=== PATIENT | male | born 1945 | race Caucasian/White ===

== ENCOUNTER 2019-07-14 13:56 | Emergency (ER) | payer MEDICARE, OTHER ==
[~2019-07-14] VITALS: Ht 188 cm; Wt 90.7 kg
[~2019-07-14 13:56] MED LIST: ACET325; CHLO25B PO; HIGH BP MED; IBUP400; LISI20 PO; Lisinopril2.5 MG; METO25 PO; Methimazole5 MG PO; Omeprazole20 M1; Prinivil10 MG PO
[2019-07-14] MEDS ORDERED: ZESTRIL40 MG PO (14:32)
[2019-07-14] MEDS ORDERED: Lopressor 25 mg25 MG PO (14:33)
[2019-07-14] MEDS ORDERED: OMEPRAZOLE20 MG PO (14:34)
[2019-07-14] MEDS ORDERED: METHI10 PO (14:34)
[2019-07-14] MEDS ORDERED: PRAV20 PO (14:35)
[2019-07-14] MEDS ORDERED: TAMS.4ER PO (14:35)
[2019-07-14] MEDS ORDERED: TOCO1000 PO (14:35)
[2019-07-14] MEDS ORDERED: Vitamin D2000 UNIT PO (14:35)
[2019-07-14] MEDS ORDERED: CYAN1000I IM (14:36)
[2019-07-14] MEDS ORDERED: Aspirin EC81 MG PO (14:36)
[2019-07-14 15:05] LABS: BASOPHILS ABSOLUTE AUTO 0.03 K/mm3 (0.00-0.23); BASOPHILS PERCENT AUTO 1 % (0-2); EOSINOPHILS ABSOLUTE AUTO 0.11 K/mm3 (0.00-0.68); EOSINOPHILS PERCENT AUTO 2 % (0-6); Hematocrit 41.9 % (37.0-53.0); Hemoglobin 13.5 g/dL (13.5-17.5); IMMATURE GRAN ABSOLUTE AUTO 0.01 K/mm3 (0.00-0.10); IMMATURE GRAN PERCENT AUTO 0 % (0-1); LYMPHOCYTES ABSOLUTE AUTO 1.28 K/mm3 (0.84-5.20); LYMPHOCYTES PERCENT AUTO 25 % (21-46); MONOCYTES ABSOLUTE AUTO 0.52 K/mm3 (0.16-1.47); MONOCYTES PERCENT AUTO 10 % (4-13); Mean Corpuscular HGB 31.2 pg (26.0-34.0); Mean Corpuscular HGB Conc 32.2 g/dL (31.5-36.5); Mean Corpuscular Volume 97 fL (80-100); Mean Platelet Volume 9.3 fL (9.1-12.4); NEUTROPHILS ABSOLUTE AUTO 3.22 K/mm3 (1.96-9.15); NEUTROPHILS PERCENT AUTO 62 % (41-73); Platelet Count 233 K/mm3 (150-400); RDW Coefficient Variation 13.7 % (11.7-14.2); RDW Standard Deviation 49.3 fL (35.1-46.3); Red Blood Cell Count 4.33 M/mm3 (4.30-5.90); White Blood Cell Count 5.17 K/mm3 (4.00-11.30)
[2019-07-14 15:22] LABS: Free Thyroxine 0.86 ng/dL (0.70-1.60); Magnesium, Blood 2.2 mg/dL (1.6-2.4); Troponin I <0.015 ng/mL (0.000-0.040)
[2019-07-14 15:26] LABS: Alanine Aminotransfer (ALT/SGP 30 U/L (12-78); Albumin, Blood 3.9 g/dL (3.4-5.0); Albumin/Globulin Ratio 1.1 (0.8-1.8); Alk Phos 65 U/L (50-136); Anion Gap 7 mmol/L (6-16); Aspartate Aminotrans (AST/SGOT 19 U/L (12-37); Bilirubin, Total 0.5 mg/dL (0.1-1.0); Blood Urea Nitrogen 13 mg/dL (8-24); Bun/Creatinine Ratio 21.1 (12.0-20.0); CO2, Blood 27 mmol/L (21-32); Calcium, Blood 9.5 mg/dL (8.5-10.1); Chloride, Blood 108 mmol/L (98-108); Creatinine, Blood 0.62 mg/dL (0.60-1.20); Globulin, Blood 3.5 g/dL (2.2-4.0); Glomerular Filtration Rate >60 (60-); Glucose, Blood 150 mg/dL (70-99); Sodium, Blood 142 mmol/L (136-145); Total Protein, Blood 7.4 g/dL (6.4-8.2); Triiodothyronine, Free 2.86 pg/mL (2.18-3.98)
== END 2019-07-14 16:25 | disposition home or self-care (01) ==
LOC: ER 13:56
PROVIDERS: Emergency Medicine
DX: I49.3 Ventricular premature depolarization (principal); I10 Essential (primary) hypertension; I48.91 Unspecified atrial fibrillation; Z87.891 Personal history of nicotine dependence; Z79.899 Other long term (current) drug therapy; Z79.82 Long term (current) use of aspirin
CPT/HCPCS: 36415; 71046; 80053; 83735; 84439; 84443; 84481; 84484; 85025; 93005; 93010; 93225; 93226; 99285-25

== ENCOUNTER → 2019-09-22 | Outpatient (CLI) | payer MEDICARE, OTHER ==
[~2019-09-22] MED LIST changes: +Aspirin EC81 MG PO; +CYAN1000I IM; +Lopressor 25 mg25 MG PO; +METHI10 PO; +OMEPRAZOLE20 MG PO; +PRAV20 PO; +TAMS.4ER PO; +TOCO1000 PO; +Vitamin D2000 UNIT PO; +ZESTRIL40 MG PO
== END | disposition home or self-care (01) ==
LOC: PLD 14:55 → LAB SHORT 14:55
DX: L82.0 Inflamed seborrheic keratosis (principal)
CPT/HCPCS: 88305

== ENCOUNTER → 2020-03-23 | Outpatient (CLI) | payer MEDICARE, OTHER | END | disposition home or self-care (01) | LOC: LAB SHORT 11:09 → PLD 11:09 | DX: B36.0 Pityriasis versicolor (principal) | CPT/HCPCS: 88305; 88312 ==

== ENCOUNTER 2020-06-06 11:23 | Day surgery (SDC) | payer MEDICARE, OTHER ==
[~2020-06-06] VITALS: Ht 188 cm; Wt 201.8 kg
[~2020-06-06 11:23] MED LIST changes: +Ascorbic Acid500 MG PO; +LISINOPRIL-HCT1 EACH PO; +PRAVASTATIN SOD10 MG PO
== END 2020-06-06 13:51 | disposition home or self-care (01) ==
LOC: ORSCSDS 11:23
PROVIDERS: Internal Medicine Gastroenterology
PROC: 0DB78ZX Excision of Stomach, Pylorus, Via Natural or Artificial Opening Endoscopic, Diagnostic (ICD-10-PCS; principal; 2020-06-06 12:30)
PROC: 0DBK8ZX Excision of Ascending Colon, Via Natural or Artificial Opening Endoscopic, Diagnostic (ICD-10-PCS; principal; 2020-06-06 12:30)
PROC: 0DB58ZX Excision of Esophagus, Via Natural or Artificial Opening Endoscopic, Diagnostic (ICD-10-PCS; principal; 2020-06-06 12:30)
PROC: 0DBM8ZX Excision of Descending Colon, Via Natural or Artificial Opening Endoscopic, Diagnostic (ICD-10-PCS; principal; 2020-06-06 12:30)
DX: K22.70 Barrett's esophagus without dysplasia (principal); Z12.11 Encounter for screening for malignant neoplasm of colon; Z86.010 Personal history of colon polyps; D12.2 Benign neoplasm of ascending colon; D12.4 Benign neoplasm of descending colon; K57.30 Diverticulosis of large intestine without perforation or abscess without bleeding; K59.00 Constipation, unspecified; I10 Essential (primary) hypertension; Z87.891 Personal history of nicotine dependence; E03.9 Hypothyroidism, unspecified; R73.09 Other abnormal glucose; J44.9 Chronic obstructive pulmonary disease, unspecified; I48.92 Unspecified atrial flutter; Z79.899 Other long term (current) drug therapy
CPT/HCPCS: 88305; 88342; J2704; J7120

== ENCOUNTER 2023-07-02 13:49 | Emergency (ER) | payer MEDICARE, OTHER ==
[~2023-07-02] VITALS: Ht 182.9 cm; Wt 86.2 kg
[2023-07-02] MEDS ORDERED: AMLODIPINE BESYL5 MG PO (14:40)
[2023-07-02] MEDS ORDERED: LINZESS145 MCG PO (14:40)
[2023-07-02] MEDS ORDERED: TIMOLOL MALEAT1 EAC1 BOTHEYES (14:40)
[2023-07-02] MEDS ORDERED: LISI20 PO (14:40)
[2023-07-02] MEDS ORDERED: EUTHYROX100 MC1 PO (14:40)
[2023-07-02] MEDS ORDERED: Percocet 5-3251 EACH PO (16:45)
[2023-07-02] MEDS ORDERED: AMOCLA875 PO (16:45)
[2023-07-02] MEDS ORDERED: ONDA4 PO (16:45)
[2023-07-02 16:53] VITALS: BP 138/84
== END 2023-07-02 16:52 | disposition home or self-care (01) ==
LOC: ER 13:49
DX: S61.231A Puncture wound without foreign body of left index finger without damage to nail, initial encounter (principal); W34.09XA Accidental discharge from other specified firearms, initial encounter; Z23 Encounter for immunization; Z79.899 Other long term (current) drug therapy; Z79.82 Long term (current) use of aspirin; I10 Essential (primary) hypertension; I48.91 Unspecified atrial fibrillation; Z87.891 Personal history of nicotine dependence
CPT/HCPCS: 73130; 90715; A9270

== ENCOUNTER → 2023-07-07 | Outpatient (CLI) | payer MEDICARE, OTHER ==
[~2023-07-07] MED LIST changes: +AMLODIPINE BESYL5 MG PO; +AMOCLA875 PO; +EUTHYROX100 MC1 PO; +LINZESS145 MCG PO; +ONDA4 PO; +Percocet 5-3251 EACH PO; +TIMOLOL MALEAT1 EAC1 BOTHEYES
[2023-07-09 11:10] LABS: Stool Occult Bld Immuno 1 Negative (NEGATIVE); Stool Occult Bld Immuno 2 Negative (NEGATIVE)
== END ==
LOC: LAB SHORT 10:00 → LAB 10:00
PROVIDERS: Internal Medicine Gastroenterology
DX: D64.9 Anemia, unspecified (principal); Z86.010 Personal history of colon polyps
CPT/HCPCS: 82274

== ENCOUNTER 2023-07-19 08:56 | Day surgery (SDC) | payer MEDICARE, OTHER ==
[~2023-07-19] VITALS: Ht 185.4 cm; Wt 85.1 kg
[2023-07-19] VITALS (44 sets, daily range): BP systolic 89–140; BP diastolic 61–82
[~2023-07-19 08:56] MED LIST changes: +Alphagan P5 ML BOTHEYES; +DORZOPSO BOTHEYES; +OMEP20ER PO; +PREDNISOLO15 MG/5 ML PO
--- NOTE | 2023-07-19 09:46 | NUR ---
PRE-PROCEDURE NOTE PT A&OX4, BREATHING RA, CALM, AT BEDSIDE. GLASSES AND HEARING AIDS WITH , REMAINING BELONGINGS IN DSU BAY. Ambulatory in Day Surgery Patient confirms NPO status and agrees with scheduled surgery. Pre-Op teaching done. Pt verbalizes understanding. Patient States Post-Procedure ride home has been arranged.
--- NOTE | 2023-07-19 09:52 | NUR ---
07/19/23 0952 Em Davies HISTORY, CHART, MEDICATIONS AND ALLERGIES REVIEWED BEFORE START OF PROCEDURE. PATIENT CONFIRMS NPO STATUS AND AGREES WITH SCHEDULED PROCEDURE. 3-LEAD EKG REVIEWED WITH PHYSICIAN PRIOR TO START OF PROCEDURE. MONITOR INTACT WITH CONTINUOUS PULSE OXIMETRY,CAPNOGRAPHY, 3-LEAD EKG, INTERMITTENT BP. SUPPLEMENTAL O2 TO BE TITRATED THROUGHOUT PROCEDURE TO MAINTAIN O2 SATURATION ABOVE 90%. PATIENT DETERMINED TO BE ASA APPROPRIATE FOR PROPOFOL SEDATION PRIOR TO START OF PROCEDURE BY .
--- NOTE | 2023-07-19 11:45 | NUR ---
DISCHARGE SUMMARY PT A&OX4, VSS/RA, HANNA PO H20, DENIES PAIN, VOIDED, IV DC'D. DC INS PROVIDED TO PT AND /FISH FILLETER; BOTH REP UNDERSTANDING THOSE INSTRUCTIONS. LEFT FLOOR VIA WC WITH DC VOL, TO GO HOME WITH /FISH FILLETER, WITH ALL PERSONAL POSSESSIONS INCLUDING DC INS.
== END 2023-07-19 11:45 | disposition home or self-care (01) ==
LOC: ORSCMMR 08:56 → ORD 09:45 → ORSCMMR 09:45 → ORD 10:15 → ORSCMMR 11:45
PROVIDERS: Internal Medicine Gastroenterology
PROC: 0DBK8ZX Excision of Ascending Colon, Via Natural or Artificial Opening Endoscopic, Diagnostic (ICD-10-PCS; principal; 2023-07-19 09:45)
PROC: 0DB68ZX Excision of Stomach, Via Natural or Artificial Opening Endoscopic, Diagnostic (ICD-10-PCS; principal; 2023-07-19 09:45)
PROC: 0DBN8ZX Excision of Sigmoid Colon, Via Natural or Artificial Opening Endoscopic, Diagnostic (ICD-10-PCS; principal; 2023-07-19 09:45)
PROC: 0DBH8ZX Excision of Cecum, Via Natural or Artificial Opening Endoscopic, Diagnostic (ICD-10-PCS; principal; 2023-07-19 09:45)
DX: D64.9 Anemia, unspecified (principal); K22.70 Barrett's esophagus without dysplasia; K57.30 Diverticulosis of large intestine without perforation or abscess without bleeding; D12.0 Benign neoplasm of cecum; D12.2 Benign neoplasm of ascending colon; D12.5 Benign neoplasm of sigmoid colon; K20.90 Esophagitis, unspecified without bleeding; Z87.891 Personal history of nicotine dependence; G47.30 Sleep apnea, unspecified; Z79.82 Long term (current) use of aspirin; Z79.899 Other long term (current) drug therapy
CPT/HCPCS: 88305; 88342; J2405; J2704; J7120